=== PATIENT | female | born 1980 | race Caucasian/White ===

== ENCOUNTER 2017-12-12 08:27 | Outpatient (CLI) ==
--- NOTE | 2017-12-12 09:12 | DI ---
EXAM: Four views of the skull. History: Frontal bone mass. Findings: Evaluation difficult due to overlapping osseous and soft tissue structures. No distinct a ir-fluid levels are seen within the sinuses. No fractures are seen. No obvious osseous masses identi fied. Impression: No acute findings. If there is concern for a frontal bone mass then recommend further e valuation with CT.
== END 2017-12-12 08:28 | disposition home or self-care (01) ==
LOC: RAD 08:27
PROVIDERS: ATTEND Physician Assistant
DX: R22.0 Localized swelling, mass and lump, head (principal)